=== PATIENT | female | born 1995 | race African-American/Black ===

== ENCOUNTER 2021-09-30 21:46 | Emergency (ER) | payer BC ==
[2021-09-30] MEDS: Sodium Chloride 0.9% 1,000 ML IV ONE (22:24)
[2021-09-30] MEDS: Ondansetron 4 MG/2 ML SDV IVPUSH PRN (22:27)
[2021-09-30] MEDS: Acetaminophen 500 MG Tab PO ONE (22:28)
[2021-09-30] MEDS: Ketorolac 30 MG/ML SDV IVPUSH ONE (22:32)
[2021-10-01] MEDS: fentaNYL 50 MCG/ML SDV IVPUSH ONE (00:05)
[2021-10-01] MEDS: Metoclopramide 10 MG/2 ML SDV IVPUSH ONE (00:10)
== END 2021-10-01 00:25 | disposition home or self-care (01) ==
LOC: CC.ED 21:46
DX: R51.9 Headache, unspecified (principal); R11.0 Nausea; Z88.0 Allergy status to penicillin
CPT/HCPCS: 36415; 70450; 80053; 81001; 81025; 83735; 85025; 96361; 96374; 96375; 99284; 99284-25; A9270-GY; J1885; J2405; J2765; J3010; J7030

== ENCOUNTER 2022-01-31 21:26 | Emergency (ER) | payer BC ==
[2022-01-31] MEDS ORDERED: Ketorolac 30 MG/ML SDV IVPUSH ONE (21:38)
[2022-01-31] MEDS ORDERED: diphenhydrAMINE 50 MG/ML SDV IVPUSH ONE (21:38)
[2022-01-31] MEDS ORDERED: Lactated Ringers 1,000 ML IV ONE (21:38)
[2022-01-31] MEDS ORDERED: Metoclopramide 10 MG/2 ML SDV IVPUSH ONE (21:38)
[2022-01-31] MEDS ORDERED: Acetaminophen 500 MG Tab PO ONE (21:38)
[2022-01-31] MEDS ORDERED: Ondansetron 4 MG/2 ML SDV IVPUSH ONE (22:11)
== END 2022-01-31 23:25 | disposition home or self-care (01) ==
LOC: CC.ED 21:26
DX: G43.909 Migraine, unspecified, not intractable, without status migrainosus (principal); Z88.0 Allergy status to penicillin
CPT/HCPCS: 96361; 96374; 96375; 99283-25; A9270-GY; J1200; J1885; J2405; J2765; J7120

== ENCOUNTER 2022-04-08 04:23 | Emergency (ER) | payer BC ==
[2022-04-08] MEDS ORDERED: Sodium Chloride 0.9% 10 ML Syringe FLUSH PRN (05:00)
[2022-04-08] MEDS ORDERED: Sodium Chloride 0.9% 1,000 ML IV ONE (05:01)
[2022-04-08] MEDS ORDERED: diphenhydrAMINE 50 MG/ML SDV IVPUSH ONE (05:07)
== END 2022-04-08 06:30 | disposition home or self-care (01) ==
LOC: CC.ED 04:23
DX: O99.891 Other specified diseases and conditions complicating pregnancy (principal); R19.7 Diarrhea, unspecified; Z3A.01 Less than 8 weeks gestation of pregnancy; Z88.0 Allergy status to penicillin; Z88.5 Allergy status to narcotic agent
CPT/HCPCS: 36415; 80053; 81001; 81025; 82947; 85025; 87086; 87088; 87186; 96361; 96374; 99283; 99284-25; J1200; J7030

== ENCOUNTER 2022-12-29 18:50 | Emergency (ER) | payer BC ==
[2022-12-29 19:33] LABS: APPEARANCE,URINE CLEAR (CLEAR); BILIRUBIN,URINE NEGATIVE (NEGATIVE); COLOR,URINE YELLOW (YELLOW); GLUCOSE,URINE NEGATIVE (NEGATIVE); KETONES,URINE NEGATIVE (NEGATIVE); LEUKOCYTE ESTERASE,URINE MODERATE (NEGATIVE); NITRITE,URINE NEGATIVE (NEGATIVE); OCCULT BLOOD,URINE MODERATE (NEGATIVE); PH,URINE 7.5 (4.5-8.0); PROTEIN,URINE NEGATIVE (NEGATIVE); UROBILINOGEN,URINE 0.2 EU/dL (0.2-1.0)
[2022-12-29 19:33] LABS: BASOPHILS ABSOLUTE AUTO 0.02 10^3/uL (0.00-0.50); BASOPHILS PERCENT AUTO 0.4 % (0-1); EOSINOPHILS ABSOLUTE AUTO 0.28 10^3/uL (0.00-1.50); EOSINOPHILS PERCENT AUTO 5.4 % (0-6); HEMATOCRIT 35.5 % (37.0-47.0); HEMOGLOBIN 11.8 g/dL (12.0-16.0); LYMPHOCYTES ABSOLUTE AUTO 2.77 10^3/uL (0.60-5.00); LYMPHOCYTES PERCENT AUTO 53.3 % (24-44); MEAN CORPUSCULAR HEMOGLOBIN 27.8 pg (27.0-32.0); MEAN CORPUSCULAR HGB CONC 33.2 g/dL (32.0-36.0); MEAN CORPUSCULAR VOLUME 83.5 fL (83.0-97.0); MONOCYTES ABSOLUTE AUTO 0.31 10^3/uL (0.00-1.50); NEUTROPHILS ABSOLUTE AUTO 1.82 x10^3/uL (1.80-8.00); NEUTROPHILS PERCENT AUTO 34.9 % (41-71); PLATELET COUNT,PLT 217 10^3/uL (150-400); RED BLOOD CELL COUNT 4.25 x10^6/uL (4.00-5.50); WHITE BLOOD CELL COUNT,WBC 5.2 10^3/uL (4.0-11.0)
[2022-12-29] MEDS: HYDROmorphone 0.5 MG/0.5 ML Syringe SUBCUT STA (19:41)
[2022-12-29 19:47] LABS: BACTERIA,URINE OCCASIONAL /HPF (NOT SEEN); EPITHELIAL CELLS,URINE OCCASIONAL /HPF (NOT SEEN); RBC,URINE 20-30 /HPF (0-5); WBC,URINE 0-5 /HPF (0-5)
[2022-12-29 19:48] LABS: ALANINE AMINOTRANSFERASE,ALT 21 U/L (12-78); ALBUMIN 3.7 g/dL (3.4-5.0); ALKALINE PHOSPHATASE 85 U/L (46-116); ASPARTATE AMNIOTRANSFERASE,AST 18 U/L (15-37); BILIRUBIN TOTAL 0.2 mg/dL (0.0-1.0); BLOOD UREA NITROGEN,BUN 13 mg/dL (7-18); CARBON DIOXIDE,CO2 31 mmol/L (21-32); CHLORIDE,CL 103 mEq/L (98-106); CREATININE 1.2 mg/dL (0.6-1.0); EST CRCL DRUG DOSING (CG) 69.69 mL/min; GLUCOSE RANDOM 88 mg/dL (75-99); POTASSIUM,K 3.8 mEq/L (3.5-5.0); PROTEIN TOTAL,TP 7.3 g/dL (6.4-8.2); SODIUM,NA 139 mEq/L (136-145)
[2022-12-29 19:49] LABS: ESTIMATED GFR 64 mL/min (>=60)
[2022-12-29 19:50] LABS: C-REACTIVE PROTEIN < 0.30 mg/dL (<=0.30)
[2022-12-29] MEDS: Take Home: Acetaminophen/HYDROcodone 325-5 MG, 2 Tab Pack PO ONE (20:07)
== END 2022-12-29 20:15 | disposition home or self-care (01) ==
LOC: CC.ED 18:50
DX: M54.6 Pain in thoracic spine (principal); M79.604 Pain in right leg; M79.605 Pain in left leg; M79.602 Pain in left arm; Z88.0 Allergy status to penicillin; Z88.5 Allergy status to narcotic agent
CPT/HCPCS: 36415; 80053; 81001; 84703; 85025; 86140; 96372; 99283; 99284; A9270-GY; J1170